=== PATIENT | male | born 1980 | race Caucasian/White ===

== ENCOUNTER 2024-08-16 05:57 | Day surgery (SDC) | payer OTHER, BC ==
[2024-08-15 11:33] LABS: Absolute Eosinophils 0.2 K/uL (0-0.5); Absolute Lymphocytes (CBC) 1.6 K/uL (0.7-4.9); Absolute Monocytes 0.4 K/uL (0.1-1.3); Absolute Neutrophil 4.1 K/uL (1.8-8.0); Basophils % 0.7 % (0-1.3); Eosinophils % 3.8 % (0-4.4); Hematocrit 51.2 % (39.6-49.0); Hemoglobin 17.1 g/dL (13.6-17.9); Lymphocytes % 25.1 % (15.3-44.8); MCH 29.6 pg (27.0-35.0); MCHC 33.5 g/dL (32.0-36.0); MCV 88.3 fL (80-100); MPV 10.3 fL (7.6-11.3); Neutrophils % 63.4 % (41.7-73.7); Nucleated Red Blood Cells % 0.5 % (0-0); Platelets 154 thou/uL (152-406); RBC Red Blood Cell Count 5.79 M/uL (4.33-5.43); Red Cell Distribution Width 14.5 % (12.1-15.2)
[2024-08-15 11:38] LABS: PT Prothrombin Time 10.9 SECONDS (9.4-12.5); PTT, Activated Partial Thromb 35.3 SECONDS (24.3-36.9); Protime INR 0.97
[2024-08-15 11:52] LABS: Albumin 3.7 g/dL (3.4-5.0); Albumin/Globulin Ratio 0.9 (1.1-1.8); Anion Gap 6.3 mEq/L (5.0-15.0); Bilirubin Total 0.6 mg/dL (0.2-1.0); Globulin 3.9 g/dL (2.3-3.5); Protein, Total 7.6 g/dL (6.4-8.2)
[2024-08-15 11:53] LABS: Potassium 4.3 mEq/L (3.5-5.1)
[2024-08-16] MEDS: Ringers Lactate 1,000 ML IV ONE (06:20)
[2024-08-16] MEDS ORDERED: LIDOCAINE 1% MPF 5 ML VIAL ONE (07:04)
[2024-08-16] MEDS ORDERED: FENTANYL CITR 100 MCG/2 ML ONE (07:04)
[2024-08-16] MEDS ORDERED: BUPIVACAINE 0.25% PF 10 ML VIAL ONE (07:04)
[2024-08-16] MEDS ORDERED: BUPIVACAINE 0.5% PF 10 ML VIAL ONE (07:05)
[2024-08-16] MEDS ORDERED: dexAMETHasone 10 MG/ML VIAL ONE ×2 (07:05→07:53)
[2024-08-16] MEDS ORDERED: MIDAZOLAM HCL 2 MG/2 ML INJ ONE (07:05)
[2024-08-16] MEDS ORDERED: EPINEPHRINE 1 MG/ML VIAL ONE (07:05)
[2024-08-16] MEDS ORDERED: METHYLPREDNISOLONE 40 MG INJ ONE (07:13)
[2024-08-16] MEDS ORDERED: LIDOCAINE 2% MPF 5 ML VIAL ONE (07:46)
[2024-08-16] MEDS ORDERED: propofoL 200 MG/20 ML VIAL IV ONE (07:46)
[2024-08-16] MEDS ORDERED: ONDANSETRON 4 MG/2 ML VIAL ONE (07:53)
[2024-08-16] MEDS: LIDOCAINE 1% 20 ML MDV ONE (07:59)
[2024-08-16] MEDS: BUPIVACAINE 0.5% PF 10 ML VIAL ONE (07:59)
[2024-08-16] MEDS: ONDANSETRON 4 MG/2 ML VIAL ONE (09:30)
[2024-08-16] MEDS: METOCLOPRAMIDE 10 MG/2mL INJ ONE (09:37)
--- NOTE | 2024-08-16 09:37 | OP ---
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 Procedure: Right talar exostectomy with plantar fascia release and calcaneal spur resection. Pathology: None. Anesthesia: TIVA with 20 cc of 1:1 0.5% Marcaine and 1% lidocaine plain. Hemostasis: Pneumatic ankle tourniquet to 250 mmHg. Estimated Blood Loss: Less than 10 cc. Materials: 3-0 and 4-0 Vicryl and 4-0 Prolene. Injectables: None. Complications: None. Procedure In Detail: The patient was brought into [facility] Operating Room and place d on the OR table in supine position. The patient was placed under sedation by anesthesiologist and 20 cc of 1:1 0.5% Marcaine and 1% lidocaine plain was injected in local fashion to right lower extrem ity. A well-padded pneumatic ankle tourniquet was applied to the right lower extremity, and the shaun ent was prepped and draped in the usual aseptic manner. Right lower extremity was exsanguinated util izing Esmarch bandage. Pneumatic ankle tourniquet was inflated to 250 mmHg. Attention was directed to the dorsal aspect of the right talar neck, at which time, a bony prominence was identified and sherif ified under fluoroscopy. An incision was made over the area of approximately 2.5 to 3 cm. Skin inci jena was neurovascular structures as necessary. At the level of the periosteum and capsul e of talar neck, a linear incision was made over this area followed by sharp dissection. structures from the bony prominence. Next, utilizing an osteotome and mallet, large bony exostosis w as resected as well as using a rongeur verified under fluoroscopy with all rough edges made smooth ut ilizing a hand rasp. The wound was then irrigated with copious amounts of normal sterile saline. Re approximation of deep structures with 3-0 Vicryl subcutaneous and 4-0 Vicryl, skin with 4-0 Prolene. Attention was then directed to the medial aspect of the right heel, at which time, utilizing fluoros copy, the insertion of the plantar fascia was identified. At this time, a linear incision of approxi mately 1 cm was made in this area. Skin incision was carried from superficial to deep str uctures as necessary. Next, utilizing a [place] elevator and maximally dorsiflexing the right foot, th e plantar fascia was freed both dorsal and plantar and utilizing a 15 blade, the medial and central b ands of the plantar fascia were identified and transected. Next, utilizing a hand rasp, the plantar calcaneal spur was resected and verified on fluoroscopy. Irrigation was then performed on the incisi on site with closure of subcutaneous structures with 4-0 Vicryl and skin with 4-0 Prolene and a steri le dressing consisting of Xeroform, 4x4s, Kerlix, and Andres wraps applied to the right lower extremity. Pneumatic ankle tourniquet was deflated with prompt hyperemic response being noted to the right low er extremity. The patient tolerated the procedure and anesthesia well and was transferred to [facility] with vital signs stable and neurovascular status intact. CONNER/XIN Voice ID: [id number] Report ID: [id number]
--- NOTE | 2024-08-16 09:56 | RAD REPORT ---
EXAM: Fluoroscopy use, Fluoroscopy <1 Hour HISTORY: [facility] MAIN HEEL SPUR PLANTAR FASCIA RELEASE COMPARISON: None FINDINGS: A total of 8 images were sent to PACS, during a fluoroscopically guided plantar fascia rele ase. No radiologist was involved in protocoling or performance of the study, and no radiologist was present for the duration of the procedure. No interpretation of the saved images will be provided. Total fluoroscopy time: 0.2 minutes. IMPRESSION: Documentation of fluoroscopy use as above.
[2024-08-16 10:29] VITALS: BP 142/92; TEMP 98.3; O2SAT 98
== END 2024-08-16 10:07 | disposition home or self-care (01) ==
LOC: OR 05:57
PROVIDERS: ATTEND Podiatrist Foot & Ankle Surgery
PROC: 0J8Q0ZZ Division of Right Foot Subcutaneous Tissue and Fascia, Open Approach (ICD-10-PCS; 2024-08-16)
PROC: 0QBL0ZZ Excision of Right Tarsal, Open Approach (ICD-10-PCS; principal; 2024-08-16 07:30)
DX: M72.2 Plantar fascial fibromatosis (principal); M77.31 Calcaneal spur, right foot; M89.9 Disorder of bone, unspecified
CPT/HCPCS: 36415; 76000; 80053; 85025; 85610; 85730; J0171; J1100; J2003; J2250; J2405; J2704; J2765; J2919; J3010; J7120